=== PATIENT | male | born 1985 | race Asian ===

== ENCOUNTER 2022-07-24 17:22 | Emergency (ER) | payer MEDICAID ==
[~2022-07-24] VITALS: Ht 170.2 cm; Wt 81.8 kg
--- NOTE | 2022-07-24 18:19 | NUR ---
PT PRESENTS TO THE ER WITH " SHAKING AND DIZZINES FROM NOT DRINKING". PT REPORTS LAST DRINK AT 1600, 3 SHOTS OF TEQUILA.
[2022-07-24] MEDS ORDERED: cloNIDine 0.1 mg tablet PO ONE (18:45)
[2022-07-24] MEDS ORDERED: LORazepam 2 mg/ml vial IV ONE (18:45)
[2022-07-24] MEDS ORDERED: normal saline 1000ml 1,000 ML IV ONE (18:45)
[2022-07-24] MEDS ORDERED: ondansetron/PF 4mg/2ml inj IV ONE (18:45)
[2022-07-24] MEDS ORDERED: LORazepam 1 MG tablet PO ONE (18:55)
[2022-07-24] MEDS ORDERED: ondansetron 4mg rapidly disintigrating tab PO ONE (18:55)
[2022-07-24 19:52] VITALS: BP 130/99
[2022-07-24] MEDS ORDERED: LORA-269 PO (20:10)
[2022-07-24] MEDS ORDERED: ONDA4TAB12 PO ×2 (20:10)
== END 2022-07-24 20:25 | disposition home or self-care (01) ==
LOC: ER 17:23
DX: F10.239 Alcohol dependence with withdrawal, unspecified (principal); Y90.9 Presence of alcohol in blood, level not specified
CPT/HCPCS: 99284; J7030

== ENCOUNTER 2024-09-03 01:43 | Emergency (ER) | payer MEDICAID ==
[~2024-09-03] VITALS: Ht 165.1 cm; Wt 77.6 kg
[~2024-09-03 01:43] MED LIST: DIPH-423 PO; HYDR28CR14 TOP; LORA-269 PO; ONDA-243 PO
[2024-09-03 01:46] VITALS: TEMP 97.7
--- NOTE | 2024-09-03 01:55 | Physician Documentation ---
History of Present Illness ~ Stated Complaint: VOMITING Time Seen by MD: 01:49 Source: patient Mode of Arrival: Ambulatory Exam Limitations: no limitations HPI Chief Complaint: Alcohol Intoxication, shaking Caveat: Alcohol intoxication Independent Historians: None History of Present Illness: Patient is a 38-year-old man who was recently in rehab for four months and left rehab two days ago. Patient started drinking when he left rehab. Patient's last drink was maybe 4 hours ago. Patient was with his uncle when his uncle encouraged him to come to the ER because he was shaking. Patient has had one episode of nausea and vomiting. Patient drinks hard liquor. Patient is somewhat uncooperative in answering questions. Review of systems: All systems were reviewed and are negative except for what is indicated in the history of present illness. Past Medical History: Alcoholism Past Surgical History: None Social History: Alcohol use, denies other drug use or tobacco use Medications: Reviewed as documented Nursing Notes Allergies: Reviewed as documented in Nursing Notes Tetanus within 5 years?: No Medication Reconciliation Allergies: Coded Allergies: No Known Allergies (Unverified , 09/03/24) Scheduled Diphenhydramine Hcl (Benadryl), 25 MG PO BID PRN ITCHING Hydrocortisone (hydrocortisone 1% cream), 1 APPLIC TOP Q12H ONDANSETRON ODT 4mg tablet (Ondansetron Odt), 1 TABLET PO Q6H Scheduled PRN Lorazepam (Ativan), 1 TAB PO Q8H PRN for alcohol withdrawal ONDANSETRON ODT 4mg tablet (Ondansetron Odt), 1 TABLET PO Q6H PRN for alc ohol withdrawal Past Medical History Past Medical History: No Pertinent History Alcohol Use: Heavy Review of Systems All Other Systems at this time: Reviewed and Negative ROS Patient denies any other acute symptoms other than above. All other systems are negative Physical Exam Pulse Oximetry Reflects: adequate oxygenation Physical Exam General Appearance: Mild distress, alcohol and breath HEENT: Normal OP, moist oral mucosa, PERRL, EOMI Neck: supple, normal ROM, trachea midline Pulmonary: No respiratory distress, CTA, BS equal Cardiac: RRR, no murmur, rub or gallop, GI: nondistended, soft, nontender, normal bowel sounds, no guarding, no rebound Extremities: normal ROM, no swelling, non-tender Skin: intact, dry, warm, no rashes Neuro: AAOx3, slurred speech, no focal motor weakness, mild tremors in hands Psych: normal affect, good eye contact, no apparent hallucination, normal speech Progress Results/Orders Results/Orders Orders - DEWEY SANDERS MD Monitor (09/03/24 01:50) Saline Lock (09/03/24 01:50) Completed Orders - DEWEY SANDERS MD Cbc/Diff (09/03/24 01:50) Ethanol (09/03/24 01:50) Drug Screen, Urine (09/03/24 01:50) Ondansetron Inj. (Zofran 4mg/2ml Vial) (09/03/24 01:50) CMP (09/03/24 01:50) Medications Received in ER Medications (Trade) Dose Ordered Sig/Farooq Route PRN Reason Start Time Stop Time Status Last Admin Dose Admin (Zofran 4mg/2ml vial) 4 mg ONCE ONCE IV 09/03/24 01:50 09/03/24 01:58 DC 09/03/24 02:25 4 MG Vital Signs 09/03/24 09/03/24 09/03/24 09/03/24 01:46 02:26 02:30 03:30 Temp 97.7 Pulse 89 82 86 Resp 16 16 16 16 B/P (MAP) 137/92 132/89 (103) 138/82 (100) Pulse Ox 99 99 97 O2 Flow Rate 0 09/03/24 04:34 Pulse 81 Resp 16 B/P (MAP) 139/86 Pulse Ox 97 Laboratory Tests Test 09/03/24 02:40 09/03/24 03:04 Urine Opiates Screen Negative Urine Methadone Screen Negative Urine Fentanyl Screen Negative Urine Barbiturates Screen Negative Urine Phencyclidine Screen Negative Urine Amphetamines Screen Negative Urine Benzodiazepines Screen Negative Urine Cocaine Screen Negative Urine Cannabinoids Screen Negative Drug Screen Comment White Blood Count 6.4 Red Blood Count 3.23 L Hemoglobin 9.5 L Hematocrit 28.8 L Mean Corpuscular Volume 89.3 Mean Corpuscular Hemoglobin 29.6 Mean Corpuscular Hemoglobin Concent 33.1 Red Cell Distribution Width 16.1 H Platelet Count 166 Mean Platelet Volume 7.5 Neutrophils (%) (Auto) 39.7 L Lymphocytes (%) (Auto) 32.5 Monocytes (%) (Auto) 9.2 Eosinophils (%) (Auto) 17.4 H Basophils (%) (Auto) 1.2 H Neutrophils # (Auto) 2.5 Lymphocytes # (Auto) 2.1 Monocytes # (Auto) 0.6 Eosinophils # (Auto) 1.1 H Basophils # (Auto) 0.1 CBC Comment Sodium Level 142 Potassium Level 4.0 Chloride Level 107 Carbon Dioxide Level 27.8 Anion Gap 7 L Blood Urea Nitrogen 7 Creatinine 0.74 Estimated GFR/1.73 m2 > 90 BUN/Creatinine Ratio 9.5 L Glucose Level 115 H Calcium Level 8.7 Total Bilirubin 1.2 H Aspartate Amino Transf (AST/SGOT) 46 H Alanine Aminotransferase (ALT/SGPT) 15 Alkaline Phosphatase 112 Total Protein 8.6 H Albumin 3.2 L Globulin 5.4 H Albumin/Globulin Ratio 0.6 L Chemistry Comments Ethyl Alcohol Level 338 H Medical Decision Making Findings Differential diagnosis includes but is not limited to: Alcohol intoxication, alcohol withdrawal, dehydration, alcoholic ketoacidosis, electrolyte abnormalities Laboratory data independent interpretation: CBC: Moderate anemia with a hemoglobin of 9.5 CMP: Unremarkable. Total bilirubin elevated 1.2, AST elevated 46, ALT normal at 15, hypoalbuminemia 3.2 Toxicology: ETOH 338, urine drug screen negative Emergency department course/medical decision-making: Patient had nausea and vomiting prior to arrival but that has discontinued. Patient is given Zofran 4 mg IV. Nausea has resolved. Patient does not appear to be in alcohol withdrawal. Patient is intoxicated. Blood alcohol was 338. 4:20 a.m.: Patient is re-evaluated. Nausea has resolved and he is feeling better. Patient will be discharged. 4:25 a.m.: Patient eloped with IV in his arm. The patient has returned. In review of the medical records the patient does not appear that has been in rehab or four months or since May. Patient was seen in the emergency department for alcohol intoxication one month ago. Patient is stable for discharge. Patient has his uncle picking him up. Departure Time of Disposition: 04:28 Disposition: 01 HOME / SELF CARE / HOMELESS Impression: Primary Impression: Alcohol intoxication Qualified Codes: F10.920 - Alcohol use, unspecified with intoxication, uncomplicated Condition: Stable Discharge Instructions: Alcohol Intoxication, [id number], Alcohol Problems Additional Instructions: FOLLOW UP WITH AA AND YOUR PRIMARY CARE DOCTOR. RECOMMEND YOU GET A SPONSOR IF YOU DO NOT HAVE ONE TO HELP YOU STOP DRINKING. Education Educated: Patient Educated regarding: diagnosis, treatment, need for follow up Signature Scribe Signature: No scribe Attestation: No scribe DEWEY SANDERS MD Sep 03, 2024 01:55
[2024-09-03] MEDS: ondansetron/PF 4mg/2ml inj IV ONE (02:25)
[2024-09-03 03:12] LABS: URINE AMPHETAMINE SCREEN NEGATIVE (Neg); URINE BARBITUATE SCREEN NEGATIVE (Neg); URINE BENZODIAZEPINES SCREEN NEGATIVE (Neg); URINE CANNABINOID SCREEN NEGATIVE (Neg); URINE COCAINE SCREEN NEGATIVE (Neg); URINE METHADONE SCREEN NEGATIVE (Neg); URINE OPIATE SCREEN NEGATIVE (Neg); URINE PHENCYCLIDINE SCREEN NEGATIVE (Neg)
[2024-09-03 03:18] LABS: MEAN PLATELET VOLUME 7.5 FL (7.4-10.4); RED CELL DISTRIBUTION WIDTH 16.1 % (11.5-14.5)
[2024-09-03 03:34] LABS: CREATININE 0.74 MG/DL (0.60-1.10); TOTAL CARBON DIOXIDE 27.8 MMOL/L (24-32); eCRCL 119 ML/MIN; eGFR > 90 ML/MIN
[2024-09-03 03:36] LABS: ETHANOL 338 MG/DL (<10)
[2024-09-03 04:34] VITALS: BP 139/86; PULSE 81; RESP 16; O2SAT 97
== END 2024-09-03 04:39 | disposition home or self-care (01) ==
LOC: ER 01:43
DX: F10.129 Alcohol abuse with intoxication, unspecified (principal); Z79.899 Other long term (current) drug therapy; Y90.8 Blood alcohol level of 240 mg/100 ml or more
CPT/HCPCS: 36415; 80053; 80305; 80320; 85025; 96374; 99283; J2405